=== PATIENT | male | born 1945 | race Caucasian/White ===

== ENCOUNTER 2019-08-03 14:14 | Emergency (ER) | payer MEDICARE ==
[~2019-08-03] VITALS: Ht 180.3 cm; Wt 70.9 kg
[~2019-08-03 14:14] MED LIST: MULT-658 PO; PRED20TA PO
--- NOTE | 2019-08-03 14:36 | NUR ---
PT AMBULATED TO RESTROOM WITH STEADY GAIT TO PROVIDE URINE SAMPLE.
--- NOTE | 2019-08-03 14:45 | NUR ---
PT C/O BILAT FEET SWELLING THAT HE NOTICED LAST NIGHT. PT IS ON HIS FEET ALOT. CURRENT LYMPHOMA LAST CHEMO 07/16. CONNECTED TO MONITORING. CALL LIGHT IN REACH. SISTER AT BEDSIDE. AWAITING ORDERS AT THIS TIME.
--- NOTE | 2019-08-03 15:14 | NUR ---
IV START. LABS DRAWN. PT RESTING ON [employer] WATCHING TV. SHALOM.
[2019-08-03 15:35] LABS: BASOPHILS # (AUTO) 0.15 x10^3/uL (0-0.1); BASOPHILS % (AUTO) 2 % (0-1); EOSINOPHILS % (AUTO) 0 % (1-7); LYMPHOCYTES # (AUTO) 1.15 x10^3/uL (1-3.4); LYMPHOCYTES % (AUTO) 14 % (22-44); MD NO; MEAN CORPUSCULAR HEMOGLOBIN 31.4 pg (27.5-34.5); MEAN CORPUSCULAR HGB CONC 32.7 g/dL (33.2-36.2); MEAN CORPUSCULAR VOLUME 96.1 fL (81-97); MEAN PLATELET VOLUME 8.8 fL (7.4-10.4); MONOCYTES # (AUTO) 0.64 x10^3/uL (0.2-0.8); MONOCYTES % (AUTO) 8 % (2-9); NEUTROPHILS # (AUTO) 6.44 x10^3/uL (1.8-6.8); NEUTROPHILS % (AUTO) 77 % (42-75); PLATELET COUNT 202 x10^3/uL (130-400); RED BLOOD COUNT 3.79 x10^6/uL (4.38-5.82)
[2019-08-03 15:47] LABS: ALANINE AMINOTRANSFERASE 35 U/L (12-78); ALBUMIN 3.4 g/dL (3.4-5.0); ANION GAP 6 mmol/L (5-15); CALCIUM 8.6 mg/dL (8.5-10.1); CHLORIDE 109 mmol/L (98-107); CREATININE 0.93 mg/dL (0.7-1.3)
[2019-08-03 15:51] LABS: ALKALINE PHOSPHATASE 93 U/L (45-117); BILIRUBIN,TOTAL 0.4 mg/dL (0.2-1.0); TROPONIN I 0.027 ng/mL (0.000-0.045)
--- NOTE | 2019-08-03 16:16 | NUR ---
US AT BEDSIDE.
[2019-08-03 16:33] VITALS: BP 147/78
--- NOTE | 2019-08-03 16:34 | NUR ---
PT RESTING COMFORTABLY ON GURNEY WITH FEET ELEVATED. PT STATES FEET FEEL BETTER AFTER ARRIVING AT HOSPITAL.
--- NOTE | 2019-08-03 16:41 | NUR ---
ALL RESULTS ARE BACK AT THIS TIME. CHART UP FOR RECHECK.
--- NOTE | 2019-08-03 17:22 | NUR ---
MD AT BEDSIDE TO UPDATE PT ON POC
== END 2019-08-03 18:18 | disposition home or self-care (01) ==
LOC: ED 14:54
DX: J91.0 Malignant pleural effusion (principal); M79.605 Pain in left leg; M79.604 Pain in right leg; M79.89 Other specified soft tissue disorders; R60.0 Localized edema; F17.200 Nicotine dependence, unspecified, uncomplicated; Z85.79 Personal history of other malignant neoplasms of lymphoid, hematopoietic and related tissues
CPT/HCPCS: 36415; 71045; 80053; 83880; 84484; 85025; 93005; 93970; 99284

== ENCOUNTER → 2019-08-12 | Outpatient (CLI) | payer MEDICARE ==
[~2019-08-12] MED LIST changes: +VANCOMYCIN PMX 1GM/200ML 200 ML IV ONE
== END | disposition home or self-care (01) ==
LOC: PETCFH 10:41
PROVIDERS: ATTEND Pathology Hematology
DX: C83.34 Diffuse large B-cell lymphoma, lymph nodes of axilla and upper limb (principal)
CPT/HCPCS: 78815; A9552

== ENCOUNTER 2019-09-08 08:04 | Outpatient (CLI) | payer MEDICARE ==
[~2019-09-08 08:04] MED LIST changes: -VANCOMYCIN PMX 1GM/200ML 200 ML IV ONE
== END 2019-09-08 23:59 | disposition home or self-care (01) ==
LOC: ROC 08:04
PROVIDERS: ATTEND Radiology Radiation Oncology
DX: C83.38 Diffuse large B-cell lymphoma, lymph nodes of multiple sites (principal)
CPT/HCPCS: 99214; G0463